=== PATIENT | female | born 1960 | race Caucasian/White ===

== ENCOUNTER 2025-10-03 14:34 | Emergency (ER) | payer OTHER, SELFPAY ==
[2025-10-03 14:54] VITALS: BP 168/101
[2025-10-03 16:37] VITALS: BMI 50.3
[2025-10-03 16:43] VITALS: BP 147/85
--- NOTE | 2025-10-03 17:12 | ED.GENMED ---
History of Present Illness
General
Chief Complaint: Back Pain
Source: patient
Exam Limitations: none
Time Seen by Provider: 10/03/25 16:22
Nursing documentation reviewed up to this point in time: agreed with
History of Present Illness
History of Present Illness:
Patient is a 65-year-old female with history of hypertension who presents to the emergency department for evaluation of abnormal chest x-ray performed at urgent care. Patient states she injured her right shoulder at work last week and went to
urgent care for evaluation. On x-ray imaging of her right shoulder they noted a mass in her right lung and recommended evaluation in the emergency department with a CT scan.
After questioning�patient does report worsening shortness of breath over the past 2 weeks, mainly at rest. She has been using her inhaler more frequently at home. She reports a mild dry cough however denies any sputum production, fever, or
hemoptysis. She denies any chest pain or exertional component to shortness of breath. No lower extremity edema.
Patient denies any recent travel or surgeries.
Review of Systems
Review of Systems
Allergies reviewed?: Yes
All Other Systems: ROS reviewed and negative except as documented in HPI and ROS
Phy Exam
Physical Exam
Physical Exam:
Vitals: Hypertensive, otherwise stable. Afebrile
General: Patient appears in no distress. Elevated BMI
Skin: Warm and dry, no rashes or lesions
Head: Normocephalic, atraumatic
Eyes: Sclera nonicteric.
Throat: Protecting airway
Neck: Normal ROM, no cervical spine tenderness, no meningismus
Cardiac: Regular rate and rhythm, no murmurs.
Pulm: Normal respiratory effort. Diminished breath sounds bilaterally without wheeze.
.
Abdomen: No abdominal tenderness.
Extremities: No evidence of cyanosis or edema
Neuro: AAOx3. Grossly intact
Psychiatric: Normal affect.
Course
Orders/Labs/Results
Orders:
Orders
10/03/25 17:10
Electrocardiogram (*1) Urgent
Reason for Study: Shortness of Breath
Chest w Contrast CT [CT Chest With Iv Contrast] Urgent
Comment:
Reason For Exam: Right lung mass seen on CXR
EKG- Treatment ONCE
10/03/25 17:38
Complete Blood Count/With Diff Urgent
Comprehensive Metabolic Panel Urgent
Troponin I Urgent
Abnormal Lab Results
10/03/25
17:38
MPV 11.1 H fL
(7.4-10.4)
Total Bilirubin 1.9 H mg/dl
(0.2-1.3)
10/03/25 17:38
10/03/25 17:38
Vital Signs
Initial and Last Documented VS:
Initial Vital Signs
Temp Pulse Resp BP Pulse Ox
98.5 F 74 19 168/101 94
10/03/25 14:54 10/03/25 14:54 10/03/25 14:54 10/03/25 14:54 10/03/25 14:54
Last Documented Vital Signs
Temp Pulse Resp BP Pulse Ox
98.5 F 82 18 139/83 99
10/03/25 14:54 10/03/25 21:00 10/03/25 21:00 10/03/25 21:00 10/03/25 21:00
MDM/Problems Addressed
Differential Diagnosis Includes:
Not limited to: Bronchitis, pneumonia, asthma exacerbation, pulmonary nodule, malignancy, etc.
MDM/Problems Addressed:
65-year-old female presenting with concern for lung mass noted on urgent care x-ray. Patient seen in urgent care for right shoulder pain after injury and found to have possible mass in right lung and referred for further imaging. She does endorse
worsening shortness of breath over the past few weeks without any other symptoms including chest pain, weight loss, productive cough, hemoptysis, fever, etc.
Vitals and physical exam as above.
Differential broad. Patient has no infectious symptoms. Given worsening shortness of breath � will obtain routine lab work, troponin, EKG. Will check CT scan with contrast for better visualization of possible mass noted in lung.
Update: labs without clinically significant abnormalities. EKG does show a bifascilar block without prior for comparison. Troponin is negative.
Fortunately - CT scan shows no notable lung mass. Thyroid nodule noted, which was discussed with patient and advise outpatient thyroid ultrasound.
Patient is in no respiratory distress. No evidence of acute infectious process today. Do not suspect pulmonary embolism.
Feel patient stable for continued management outpatient with primary care. Advised follow-up with cardiology, as well. Return provision discussed. Patient comfortable w/ plan.
Chronic conditions affecting care:
Hypertension
Acute Exacerbation and/or Progression of Chronic Illness:
Acutely hypertensive
*Radiology
Radiology exam reviewed: radiology read reviewed
*Pulse Oximetry
SaO2: 97
Oxygen Mode of Delivery: Room air
Patient hypoxic: no
*EKG
Interpreted by ED Provider?: Yes
EKG Intrepretation Date: 10/03/25
Interpretation: abnormal
Comparison EKG: no comparison EKG present
Heart Rate: 76
Rate: normal
Rhythm: sinus
[place]: normal axis
Interval: long QT
QRS Pattern: other (Bifascicular block)
*Nuclear Scientist Interpretation
Rate: Nuclear Scientist- N/A
*Critical Care Note
Total Time (30-74mins, 75-104mins- exclusive of procedures): Not Applicable
Data Reviewed
Review of Other/Old Records Reveals: Radiology Studies (Reviewed right shoulder x-ray performed at urgent care which appears to show a subtle opacity in right midlung)
ED Attending Note
-
Portions of this chart may have been created with voice recognition software.� Occasional wrong word or��sound alike� substitutions may have occurred due to the inherent limitations of voice recognition software.
Discharge Plan
Departure
Patient Disposition: Home (Routine Discharge)
Date of Disposition: 10/03/25
Time of Disposition: 21:24
Patient with high blood pressure during this ER visit?: Yes
Condition: Good
Discharge Problem:
Mild shortness of breath
Instructions: Shortness of breath in adults - ED (DC), BLOOD PRESSURE
Referrals:
Fernando,Marisabel, DO [Active, Cardiology]
UNKNOWN - PT DOES,NOT KNOW [Family Provider]
Activity Restrictions/Additional Instructions:
RETURN TO THE EMERGENCY DEPARTMENT WITH ANY FEVER, CHEST PAIN OR SHORTNESS OF BREATH/DIFFICULTY BREATHING, SEVERE BACK PAIN, WORSENING IN CURRENT SYMPTOMS, OR ANY OTHER CONCERNS
- As discussed your lab work performed the emergency department showed no acute abnormalities.
- The CT scan of your chest did not show any discrete lung masses however you were found to have a small nodule near your thyroid. Please ensure that you have an outpatient ultrasound for further evaluation.
- In addition, your EKG showed a bifascicular block. Please follow-up with a tug master for further evaluation/management
Monitor your symptoms closely and return to the emergency department with any acute worsening/new symptoms or any other concerns
Interventions
Interventions:
*General Assessment Last Done: 10/03/25 14:54
*Neglect/Abuse Screening Last Done: 10/03/25 14:54
*ED COVID-19 Vaccine History Last Done: 10/03/25 16:38
*ED Influenza Vaccine History Last Done: 10/03/25 16:38
[facility] Risk Assessment Tool Last Done: 10/03/25 16:35
*Risk Screen - Suicide (C-SSRS) Last Done: 10/03/25 14:54
*Nursing Disposition Last Done: 10/03/25 21:38
ED-Musculoskeletal Assessment Last Done: 10/03/25 16:35
Discharge Date and Time
Discharge Date/Time: 10/03/25 21:34
Print Language: LATVIAN
[2025-10-03 17:50] LABS: Hematocrit 40.3 % (37.0-47.0); Hemoglobin 13.5 g/dL (12.0-16.0); Mean Corp Hgb Conc. 33.5 g/dL (33.0-37.0); Mean Corpuscular Volume 92.0 fL (81.0-99.0); Nucleated Red Blood Cells % 0 %; Platelet Count 242 10^3/uL (130-400); Red Cell Dist. Width 11.9 % (11.5-14.5)
[2025-10-03 18:07] LABS: ALT (SGPT) 19 U/L (0-35); AST (SGOT) 25 U/L (14-36); Albumin 4.4 g/dl (3.5-5.0); Alkaline Phosphatase 66 U/L (38-126); Blood Urea Nitrogen 13 mg/dl (7-17); Calcium 9.3 mg/dl (8.4-10.2); Carbon Dioxide 26 mmol/L (22-30); Chloride 103 mmol/L (98-107); Estimated Creatinine Clearance 106 ml/min; Glucose 97 mg/dl (70-99); Potassium 3.7 mmol/L (3.5-5.1); Sodium 137 mmol/L (135-145); Total Protein 7.4 g/dl (6.3-8.2); eGFR > 60.00
[2025-10-03 18:19] LABS: Troponin I 0.018 ng/ml
[2025-10-03 21:00] VITALS: BP 139/83
== END 2025-10-03 21:34 | disposition home or self-care (01) ==
LOC: EMR 14:34
PROVIDERS: Physician Assistant; EMERGENCY PHYSICIAN Emergency Medicine
DX: R06.02 Shortness of breath (principal); I10 Essential (primary) hypertension
CPT/HCPCS: 99284; 71260; 80053; 84484; 85025; 93005; Q9967